=== PATIENT | female | born 1975 | race Caucasian/White ===

== ENCOUNTER 2019-10-25 17:13 | Observation (INO) ==
[2019-10-25] MEDS ORDERED: levETIRAcetam 1,000 MG in 0.9 % Sodium Chloride 100 ML IVPB STA (17:25)
[2019-10-25] MEDS ORDERED: Naloxone 0.4 MG/ML INJ IVP PRN (21:49)
[2019-10-25] MEDS ORDERED: Ketorolac 15 MG/ML VIAL IVP PRN (22:17)
[2019-10-25] MEDS: Nicotine 21 MG PATCH.TD24 TD SCH (22:46)
[2019-10-26] MEDS: *HR* HYDROcodone/Acet 5/325 mg TABLET PO PRN ×3 (03:31→22:00)
[2019-10-26 06:27] LABS: Hematocrit 32.3 % (35.3-44.9); Hemoglobin 11.1 g/dL (11.5-15.4); Mean Corpuscular HGB Conc 34.4 g/dL (31.6-35.5); Mean Corpuscular Hemoglobin 30.9 pg (28.0-33.3); Mean Platelet Volume 10.5 fL (9.4-12.4); Platelet Count 250 K/mcL (140-400); Red Blood Count 3.59 M/mcL (3.82-4.97); Red Cell Distribution Width 12.9 % (11.5-14.5); White Blood Count 9.6 K/mcL (4.3-11.1)
[2019-10-26 06:53] LABS: BUN/Creatinine Ratio 20 (6-26); Blood Urea Nitrogen 13 mg/dL (6-20); Calcium 9.1 mg/dL (8.6-10.3); Carbon Dioxide 25 mEq/L (23-29); Chloride 107 mEq/L (98-107); Glucose 149 mg/dL (70-105); Osmolality,Calculated 289 (280-300); Phosphorous 3.6 mg/dL (2.7-4.5); Potassium 3.6 mEq/L (3.5-5.1); Sodium 138 mEq/L (136-145); eGFR For African Americans > 60 (> 60); eGFR For Non-African Americans > 60 (> 60)
[2019-10-26] MEDS: Nicotine 21 MG PATCH.TD24 TD SCH ×2 (09:26→22:00)
[2019-10-26] MEDS: Divalproex (12 HR) 500 MG TABLET PO SCH ×3 (09:26→20:04)
[2019-10-26] MEDS ORDERED: *HR* LORazepam 2 MG/ML VIAL IVP PRN (11:48)
[2019-10-27 02:45] LABS: Hematocrit 33.4 % (35.3-44.9); Mean Corpuscular HGB Conc 32.9 g/dL (31.6-35.5); Mean Corpuscular Hemoglobin 29.9 pg (28.0-33.3); Mean Corpuscular Volume 90.8 fL (83.0-100.0); Mean Platelet Volume 11.3 fL (9.4-12.4); Platelet Count 251 K/mcL (140-400); Red Blood Count 3.68 M/mcL (3.82-4.97); Red Cell Distribution Width 13.2 % (11.5-14.5); White Blood Count 8.4 K/mcL (4.3-11.1)
[2019-10-27 03:02] LABS: BUN/Creatinine Ratio 25 (6-26); Blood Urea Nitrogen 20 mg/dL (6-20); Calcium 9.2 mg/dL (8.6-10.3); Carbon Dioxide 27 mEq/L (23-29); Chloride 103 mEq/L (98-107); Glucose 80 mg/dL (70-105); Osmolality,Calculated 290 (280-300); Potassium 3.7 mEq/L (3.5-5.1); Sodium 139 mEq/L (136-145); eGFR For African Americans > 60 (> 60); eGFR For Non-African Americans > 60 (> 60)
[2019-10-27] MEDS: Divalproex (12 HR) 500 MG TABLET PO SCH (08:11)
[2019-10-27] MEDS: *HR* HYDROcodone/Acet 5/325 mg TABLET PO PRN (08:11)
[2019-10-27 10:42] VITALS: BP 124/64
== END 2019-10-27 11:55 | disposition left against medical advice (07) ==
LOC: EMEROOARM 17:13 → 3BNU 17:13
PROVIDERS: ADMIT Internal Medicine; ATTEND Internal Medicine

== ENCOUNTER 2020-06-03 12:59 | Observation (INO) ==
[2020-06-03] MEDS ORDERED: Morphine Sulfate 2 MG/ML SYRINGE IVP ONE (13:33)
[2020-06-03] MEDS ORDERED: Isovue-370 500 ML BOTTLE IVP ONE (13:33)
[2020-06-03] MEDS ORDERED: 0.9 % Sodium Chloride 1,000 ML IVC ONE (13:33)
[2020-06-03] MEDS ORDERED: Ondansetron 4 MG/2 ML VIAL IVP ONE (13:33)
[2020-06-03 14:08] LABS: Bacteria,Urine Few per hpf (None-Few); Bilirubin,Urine Negative (Negative); Blood,Urine Negative (Negative); Clarity,Urine Clear (Clear); Color,Urine Yellow (Yellow); Glucose,Urine (UA) Normal (Normal); Ketones,Urine 20 mg/dL (Negative); Leukocyte Esterase,Urine Negative (Negative); Mucus,Urine Many per lpf (None-Few); Nitrite,Urine Negative (Negative); Protein,Urine 50 mg/dL (Neg-Trace); RBC,Urine 0-3 per hpf (0-3); Squamous Epithelial Cell,Urine Few per hpf (None-Few); Urobilinogen,Urine Normal (Normal)
[2020-06-03 15:50] LABS: Basophils # 0.1 K/mcL (0.0-0.2); Basophils % 0.4 %; Eosinophils % 0.2 %; Hematocrit 44.7 % (35.3-44.9); Hemoglobin 15.1 g/dL (11.5-15.4); Immature Granulocytes % 0.4 % (0-4); Lymphocytes % 18.3 %; Mean Corpuscular HGB Conc 33.8 g/dL (31.6-35.5); Mean Corpuscular Hemoglobin 30.3 pg (28.0-33.3); Mean Corpuscular Volume 89.8 fL (83.0-100.0); Mean Platelet Volume 12.1 fL (9.4-12.4); Monocytes # 0.8 K/mcL (0.0-1.3); Neutrophils # 12.4 K/mcL (1.6-8.9); Platelet Count 281 K/mcL (140-400); Red Blood Count 4.98 M/mcL (3.82-4.97); Red Cell Distribution Width 13.2 % (11.5-14.5); Segmented Neutrophils % 75.7 %; White Blood Count 16.3 K/mcL (4.3-11.1)
[2020-06-03 17:26] LABS: Alanine Aminotransferase 167 Units/L (7-52); Albumin 4.4 g/dL (3.5-5.7); Albumin/Globulin Ratio 1.4 (1.1-2.2); Alkaline Phosphatase 70 Units/L (34-104); Aspartate Amino Transferase 86 Units/L (13-39); BUN/Creatinine Ratio 35 (6-26); Bilirubin,Direct 0.1 mg/dL (0.0-0.2); Bilirubin,Indirect 0.3 mg/dL (0.0-1.0); Bilirubin,Total 0.4 mg/dL (0.3-1.0); Blood Urea Nitrogen 19 mg/dL (6-20); Calcium 9.6 mg/dL (8.6-10.3); Carbon Dioxide 26 mEq/L (23-29); Chloride 106 mEq/L (98-107); Globulin 3.2 g/dL (2.4-3.5); Glucose 100 mg/dL (70-105); Lipase 28 Units/L (11-82); Osmolality,Calculated 294 (280-300); Potassium 3.6 mEq/L (3.5-5.1); Sodium 141 mEq/L (136-145); Total Protein 7.6 g/dL (6.4-8.9); eGFR For African Americans > 60 (> 60); eGFR For Non-African Americans > 60 (> 60)
[2020-06-03] MEDS ORDERED: Ampicillin/Sulbactam 3,000 MG in 0.9 % Sodium Chloride Mini Bag 100 ML IVPB ONE (18:31)
[2020-06-03] MEDS ORDERED: Ondansetron 4 MG/2 ML VIAL IVP PRN (23:16)
[2020-06-04] MEDS: Ampicillin/Sulbactam 3,000 MG in 0.9 % Sodium Chloride Mini Bag 100 ML IVPB SCH ×4 (00:17→17:54)
[2020-06-04] MEDS: 0.9 % Sodium Chloride 1,000 ML IVC SCH ×2 (00:18→09:38)
[2020-06-04] MEDS ORDERED: *HR* HYDROmorphone PF 0.5 MG/0.5 ML SYRINGE IVP PRN (21:31)
[2020-06-04] MEDS ORDERED: Ondansetron 4 MG/2 ML VIAL IVP PRN ×2 (21:31→23:55)
[2020-06-04] MEDS ORDERED: *HR* FentaNYL (PF) 100 MCG/2 ML VIAL ONE (21:43)
[2020-06-04] MEDS ORDERED: *HR* Rocuronium Bromide 50 MG/5 ML VIAL ONE (21:43)
[2020-06-04] MEDS ORDERED: *HR* Propofol 200 MG/20 ML VIAL IVP ONE (21:43)
[2020-06-04] MEDS ORDERED: Dexamethasone 4 MG/ML VIAL ONE (21:43)
[2020-06-04] MEDS ORDERED: Lidocaine HCL 4 ML Topical Solution (Laryng-O-Jet Kit Sterile Pak) TP ONE (21:43)
[2020-06-04] MEDS ORDERED: Ondansetron 4 MG/2 ML VIAL ONE (21:43)
[2020-06-04] MEDS ORDERED: Lidocaine -MPF 2% 2 ML VIAL ONE ×2 (21:43→21:44)
[2020-06-04] MEDS ORDERED: *HR* Midazolam HCl 2 MG/2 ML VIAL ONE (21:43)
[2020-06-04] MEDS ORDERED: *HR* PHENYLEPHRINE 1,000 MCG/10 ML SYRINGE IVP ONE (22:12)
[2020-06-04] MEDS ORDERED: *HR* OxyCODONE/APAP 5/325 TABLET PO PRN (23:55)
[2020-06-05] MEDS: Ampicillin/Sulbactam 3,000 MG in 0.9 % Sodium Chloride Mini Bag 100 ML IVPB SCH ×2 (00:28→06:50)
[2020-06-05] MEDS: Ketorolac 15 MG/ML VIAL IVP SCH ×2 (00:28→06:50)
[2020-06-05 11:25] VITALS: BP 96/61
== END 2020-06-05 12:46 | disposition home or self-care (01) ==
LOC: EMEROOARM 12:59 → 3ANU 12:59
PROVIDERS: ADMIT Internal Medicine; ATTEND Surgery